=== PATIENT | female | born 1995 | race Caucasian/White ===

== ENCOUNTER 2019-03-20 00:01 | Emergency (ER) | payer SELFPAY ==
[~2019-03-20] VITALS: Ht 162.6 cm; Wt 54.4 kg
--- NOTE | 2019-03-20 00:06 | NUR ---
PT C/C PELVIC PAIN AND BILAT LEG PAIN X1HR, HX OF OVARIAN CYST, AFEBRILE. PT AOX4. VSS. AMBULATORY WITH ASSISTANCE. PT ON MONITOR IN BED 7 WITH FRIEND AT BEDSIDE. WILL CONTINUE TO MONITOR.
[2019-03-20] MEDS ORDERED: ONDANSETRON HCL/PF 4 MG/2 ML VIAL ONE ×2 (00:15→01:32)
--- NOTE | 2019-03-20 00:15 | NUR ---
BLOOD DRAWN AND GIVEN TO LAB
[2019-03-20] MEDS ORDERED: MORPHINE SULFATE INJ 4 MG/ML DISP.SYRIN ONE (00:16)
[2019-03-20 00:18] LABS: BASOPHILS % (AUTO) 0.3 % (0.0-2.0); EOSINOPHILS % (AUTO) 0.1 % (0.0-6.0); HEMATOCRIT 41 % (33-45); HEMOGLOBIN 13.7 g/dL (11.5-14.8); LYMPHOCYTES # (AUTO) 2.3 /CMM (0.8-4.8); LYMPHOCYTES % (AUTO) 35.8 % (20.0-44.0); MEAN CORPUSCULAR HGB CONC 34 g/dl (31.0-36.0); MEAN CORPUSCULAR VOLUME 89 fL (82-100); MONOCYTES # (AUTO) 0.5 /CMM (0.1-1.30); MONOCYTES % (AUTO) 7.4 % (2.0-12.0); NEUTROPHILS # (AUTO) 3.6 /CMM (1.8-8.9); NEUTROPHILS % (AUTO) 56.4 % (43.0-81.0); PLATELET COUNT (AUTO) 229 /CMM (150-450); RED BLOOD CELL COUNT(AUTO) 4.55 MIL/uL (4.0-5.2); WHITE BLOOD COUNT (AUTO) 6.3 K/uL (4.3-11.0)
[2019-03-20] MEDS ORDERED: IV NS 0.9% 1,000 ML BAG IV ONE (00:30)
[2019-03-20] MEDS ORDERED: ONDANSETRON HCL/PF 4 MG/2 ML VIAL IVP ONE (00:30)
[2019-03-20] MEDS ORDERED: MORPHINE SULFATE INJ 2 MG/ML DISP.SYRIN IV ONE (00:30)
[2019-03-20 00:50] LABS: CALCIUM, SERUM 9.1 mg/dL (8.5-10.1); CREATININE 0.9 mg/dL (0.6-1.3); POTASSIUM 3.6 mmol/L (3.5-5.1)
[2019-03-20] MEDS ORDERED: ONDANSETRON HCL/PF 4 MG/2 ML VIAL IV ONE (01:30)
[2019-03-20 01:36] VITALS: BP 113/68
--- NOTE | 2019-03-20 02:02 | NUR ---
Patient is resting comfortably in bed with eyes closed. Easily aroused. VSS. FRIEND AT BEDSIDE.
[2019-03-20 02:45] LABS: APPEARANCE,URINE Clear (CLEAR); BILIRUBIN,URINE SMALL (NEGATIVE); BLOOD, URINE Moderate Ery/uL (NEGATIVE); COLOR,URINE Amber (YELLOW); KETONES,URINE Trace (NEGATIVE); LEUKOCYTE ESTERASE ,URINE Negative (NEGATIVE); NITRITE, URINE Negative (NEGATIVE); PH,URINE 5.5 (5.0-8.0); PROTEIN,URINE Negative (NEGATIVE); UGLUCOSE Negative (NEGATIVE)
--- NOTE | 2019-03-20 03:13 | NUR ---
IV removed. Catheter intact and site benign. Pressure and 4x4 applied to site. No bleeding noted.Patient discharged to home in stable condition. Written and verbal after care instructions given. Patient verbalizes understanding of instruction. PT AMBULATORY WITH STEADY GAIT.
[2019-03-20 03:14] LABS: RBC,URINE 21-50 /HPF (0-2)
[2019-03-20 03:15] LABS: BACTERIA,URINE Moderate /HPF (None Seen); SQUAMOUS EPITHELIAL CELL,UR Few /HPF (None Seen)
== END 2019-03-20 03:26 | disposition home or self-care (01) ==
LOC: ER 00:05
DX: N83.202 Unspecified ovarian cyst, left side (principal); G40.909 Epilepsy, unspecified, not intractable, without status epilepticus; Z79.899 Other long term (current) drug therapy
CPT/HCPCS: 36415; 76856; 80048; 81001; 84702; 85025; 85730; 87086; 96374; 96375; 96376; 99284; J2270; J2405 ×2; J7030; 81000-TC